=== PATIENT | male | born 1965 | race Caucasian/White ===

== ENCOUNTER 2022-08-30 22:50 | Emergency (ER) | payer OTHER, SELFPAY ==
--- NOTE | ~2022-08-30 | US_ITS ---
Testicular ultrasound with doppler. Indication: Right testicular pain. Technique: Real-time sonography the scrotum was performed. Color flow Doppler and Doppler spectral an alysis were performed. Findings: The testes are homogeneous in echotexture bilaterally. There is no evidence of an intrates ticular mass. The right testis measures 4.2 x 2.4 x 2.9 cm and the left 4.2 x 2.3 x 3.1 cm. There is color-flow seen to both testes. Arterial and venous spectral waveforms are seen in both testes. There is no sonographic evidence of torsion. The head of the epididymis is visualized bilaterally and is within normal limits. Minimal bilateral hydroceles noted. Impression: No testicular mass or testicular torsion. Minimal bilateral hydroceles. Reviewed, dictated and finalized at [facility]. CELL BATTERY TECHNICIAN Impression: No testicular mass or testicular torsion. Minimal bilateral hydroceles.
--- NOTE | ~2022-08-30 | CT_ITS ---
CT Abdomen and Pelvis with contrast. History: Abdominal pain. Spiral CT of the abdomen and pelvis was performed after the administration of intravenous contrast. 1 00 cc of Omnipaque 350 was administered intravenously without complication. Dose reduction technique was used on this scan by utilizing automated exposure control and iterative reconstruction technique. The dose-length product (DLP) was 886.76 mGy-cm. Findings: Scans through the lung bases demonstrate mild atelectatic change. The liver, spleen, pancreas, gallbladder, and adrenal glands are within normal limits. There is a 7 x 5 mm stone at the right UVJ (Hounsfield units 1600), with minimal fullness of the right ureter. No f rank hydronephrosis evident in the kidney however. Additional small bilateral nonobstructing renal st ones are present. Small bilateral renal cysts are present. No left ureteral stone or left hydronephro sis. No evidence of aortic aneurysm. No lymphadenopathy is seen. There is no evidence of bowel obstruction. There is no evidence to suggest acute appendicitis or dive rticulitis. Images through the pelvis were performed. Urinary bladder otherwise unremarkable. Prostate gland and seminal vesicles are unremarkable. No ascites is seen. Impression: 7 x 5 mm stone at the right UVJ, as detailed above, with minimal fullness of the right ureter. Additional small bilateral nonobstructing renal stones. Reviewed, dictated and finalized at location . OR TECHNICAL WRITER Impression: 7 x 5 mm stone at the right UVJ, as detailed above, with minimal fullness of th e right ureter. Additional small bilateral nonobstructing renal stones.
[2022-08-30 22:53] VITALS: BP 157/85; PULSE 87; RESP 16; TEMP 36.4; O2SAT 97
[2022-08-30 23:14] LABS: Basophils Absolute Auto 0.1 K/mm3 (0.0-0.1); Basophils Percent Auto 0.5 % (0.2-1.2); Eosinophils Absolute Auto 0.1 K/mm3 (0-0.3); Eosinophils Percent Auto 1.2 % (0-4.4); Hematocrit 46.2 % (42.0-52.0); Hemoglobin 15.2 g/dL (14.0-18.0); Immature Granulocyte Absolute 0.06 K/mm3 (0.00-0.031); Immature Granulocyte Percent A 0.5 % (0-0.5); Lymphocytes Absolute Auto 1.61 K/mm3 (0.9-3.2); Lymphocytes Percent Auto 14.7 % (18.3-44.2); Mean Corpuscular HGB Conc 32.9 g/dl (32-36); Mean Corpuscular Volume 91.1 fl (80-100); Mean Platelet Volume 9.5 fl (7.4-10.4); Monocytes Percent Auto 9.3 % (2.6-8.5); Neutrophils Absolute Auto 8.1 K/mm3 (1.3-6.7); Neutrophils Percent Auto 73.8 % (45.5-73.1); Platelet Count Result 274 k/mm3 (150-375); Red Blood Count 5.07 M/mm3 (4.6-6.20); Red Cell Distribution Width 12.9 % (11.5-14.5)
[2022-08-30 23:32] VITALS: BP 160/96; PULSE 87; RESP 18; O2SAT 96
[2022-08-30 23:45] VITALS: BP 160/100; O2SAT 95
--- NOTE | 2022-08-30 23:56 | ED.ABDPAIN ---
HPI - Abdominal Pain General Chief Complaint: Abdominal Pain Stated Complaint: RLQ ABD pain to testicle Time Seen by Provider: 08/30/22 23:37 History of Present Illness HPI narrative: Patient is a 57-year-old male here for evaluation of right-sided testicular pain over the past several hours. Patient states the pain is sharp and stabbing in nature, coming on at random, lasting for minutes at a time before resolving without intervention. The pain radiates into his right lower quadrant in his abdomen. He also notes several episodes of nausea and vomiting. No fever, chills, diarrhea or constipation. No penile discharge, dysuria, urgency or frequency. Review of Systems Review of Systems: Gen.: Denies fevers or chills Eyes: Denies eye pain or visual change ENT: Denies congestion Respiratory: Denies shortness of breath or cough CV: Denies chest pain or palpitations GI: Denies abdominal pain nausea, emesis or diarrhea reports right testicular pain. Denies burning, urgency, frequency or hematuria Musculoskeletal: Denies back pain or muscle pain Neuro: Denies numbness, tingling, weakness or focal weakness Skin: Denies rash Except as documented, all other systems reviewed and negative Exam Narrative: APPEARANCE: Well appearing, no pain in distress, well-nourished. Head: Normocephalic and atraumatic. EYES: PERRLA/EOMI, conjunctivae clear NOSE: No nasal drainage EARS: External ear normal in appearance THROAT: Oropharynx is clear. Mucous membranes are moist. NECK: Supple. No adenopathy, no masses. RESPIRATORY: Airway patent, respirations nonlabored. Clear to auscultation bilaterally, no rales, rhonchi, wheezing. CARDIOVASCULAR: Regular rate and rhythm without murmurs, rubs, or gallops. ABDOMINAL: No abdominal tenderness on exam. Normoactive bowel sounds. Soft, nontender, nondistended. No rebound tenderness or guarding. : External genitalia normal in appearance. There is no tenderness to palpation of either testicle. MUSCULOSKELETAL: Extremities are warm and well-perfused. Moves all extremities well. No edema. NEURO: Normal speech. No focal neurologic deficits. SKIN: Skin is warm and dry. No rashes. PSYCHIATRIC: Normal affect/mood.. Course Vital Signs Vital signs: Vital Signs Temperature 97.6 F 08/30/22 22:53 Pulse Rate 87 08/30/22 22:53 Respiratory Rate 16 08/30/22 22:53 Blood Pressure 157/85 H 08/30/22 22:53 Pulse Oximetry 97 08/30/22 22:53 Oxygen Delivery Room Air 08/30/22 22:53 Temperature 97.6 F 08/30/22 22:53 Pulse Rate 87 08/30/22 23:32 Respiratory Rate 18 08/30/22 23:32 Blood Pressure 134/90 08/31/22 00:15 Pulse Oximetry 94 08/31/22 00:15 Oxygen Delivery Room Air 08/30/22 22:53 MDM - Abdominal Pain MDM Narrative Medical decision making narrative: 57-year-old male here for evaluation of right-sided testicular pain that radiates into his right lower quadrant for the past several hours associated with some nausea and vomiting. He is nontoxic in appearance and has normal vital signs. His testicle is normal in appearance and is nontender to palpation along with his abdomen. Testicular ultrasound with no acute findings. CT abdomen pelvis shows a 8 mm obstructing kidney stone at the right UVJ which likely explains his symptoms. Patient feeling markedly improved after pain medicine and Zofran, able to tolerate p.o. and states he is pain-free. He does have a white count of 11 and his BUN is slightly elevated at 30, do not have a baseline to compare to. Creatinine is normal. UA without evidence of infection. Will send patient home with pain meds, urine strainer, Flomax, and urology follow-up. He understands he may return to ED if his pain is too severe or if he develops a fever. Lab Data 08/30/22 23:00 08/30/22 23:00 Labs: Lab Results 08/30/22 08/30/22 08/31/22 Range/Units 23:00 23:00 03:12 WBC 11.0 H (4.5-10.0) K/mm3 RBC 5.07 (4.6-6.20
[2022-08-30] MEDS: ONDANSETRON INJ 4 MG/2 ML VIAL IV PUSH (23:57)
[2022-08-30] MEDS: MORPHINE SULFATE (*CRX) 4 MG/ML INJ IV PUSH (23:57)
[2022-08-31 00:01] VITALS: BP 138/90; O2SAT 93
[2022-08-31 00:15] VITALS: BP 134/90; O2SAT 94
[2022-08-31 00:51] LABS: Alanine Aminotransferase 27 U/L (6-50); Albumin Level 4.7 g/dL (3.5-5.1); Alkaline Phosphatase 76 U/L (38-126); Anion Gap 8 mmol/L (8-16); Aspartate Amino Transferase 30 U/L (17-59); Bilirubin,Total 0.6 mg/dL (0.2-1.3); Blood Urea Nitrogen 30 mg/dL (9-20); Calcium 8.5 mg/dL (8.4-10.2); Carbon Dioxide 24 mmol/L (22-30); Chloride 105 mmol/L (98-107); Estimated CRCL calculation 79 ml/min; Estimated Glomerular Filt Rate > 60; Glucose 147 mg/dL (65-110); Sodium 137 mmol/L (137-145)
[2022-08-31 01:24] LABS: Lipase 97 U/L (23-300)
[2022-08-31] MEDS: SODIUM CHLORIDE 0.9% IV 1,000 ML 999 ML IV CONT (02:27)
[2022-08-31 03:32] LABS: Appearance Urine Clear (Clear); Bilirubin Urine Negative (Negative); Blood Urine Trace-intact (Negative); Color Urine Yellow (Yellow); Glucose Urine UA Negative (Negative); Ketones Urine Negative (Negative); Leukocyte Esterase Ur Negative LEU/UL (Negative); Nitrate Urine Negative (Negative); Protein Urine Negative (Negative); Urobilinogen Urine 0.2 mg/dL (<2.0)
[2022-08-31 03:33] LABS: Mucus Urine Rare /lpf; Squamous Epithelial Cell Urine Rare /hpf (Few); WBC Urine 0-3 /hpf
[2022-08-31 03:40] LABS: Add Urine Microscopic? YES
== END 2022-08-31 03:45 | disposition home or self-care (01) ==
PROVIDERS: Preventive Medicine Aerospace Medicine; Emergency Provider Physician Assistant; PCP Internal Medicine
DX: N20.1 Calculus of ureter (principal)
CPT/HCPCS: 36415; 74177; 76870; 80053; 81001; 83690; 85025; 93976; 96361; 96374; 96375; 99284; J2270; J2405; J7030; Q9967

== ENCOUNTER 2022-11-20 19:53 | Emergency (ER) | payer OTHER, SELFPAY ==
[2022-11-20 20:25] VITALS: BP 125/79; PULSE 75; RESP 16; TEMP 36.2; O2SAT 97
[2022-11-20 20:48] LABS: Basophils Percent Auto 0.4 % (0.2-1.2); Eosinophils Absolute Auto 0.1 K/mm3 (0-0.3); Eosinophils Percent Auto 0.8 % (0-4.4); Hematocrit 45.8 % (42.0-52.0); Immature Granulocyte Absolute 0.03 K/mm3 (0.00-0.031); Immature Granulocyte Percent A 0.3 % (0-0.5); Lymphocytes Absolute Auto 1.57 K/mm3 (0.9-3.2); Lymphocytes Percent Auto 17.2 % (18.3-44.2); Mean Corpuscular HGB Conc 32.8 g/dl (32-36); Mean Corpuscular Hemoglobin 29.5 pg (26-34); Mean Platelet Volume 9.5 fl (7.4-10.4); Monocytes Absolute Auto 0.6 K/mm3 (0.1-0.6); Monocytes Percent Auto 6.9 % (2.6-8.5); Neutrophils Absolute Auto 6.8 K/mm3 (1.3-6.7); Neutrophils Percent Auto 74.4 % (45.5-73.1); Platelet Count Result 253 k/mm3 (150-375); Red Blood Count 5.09 M/mm3 (4.6-6.20); Red Cell Distribution Width 12.7 % (11.5-14.5); White Blood Count 9.1 K/mm3 (4.5-10.0)
[2022-11-20 21:00] LABS: Alanine Aminotransferase 24 U/L (6-50); Albumin Level 4.8 g/dL (3.5-5.1); Alkaline Phosphatase 71 U/L (38-126); Anion Gap 8 mmol/L (8-16); Aspartate Amino Transferase 25 U/L (17-59); Bilirubin,Total 0.5 mg/dL (0.2-1.3); Blood Urea Nitrogen 29 mg/dL (9-20); Calcium 8.9 mg/dL (8.4-10.2); Carbon Dioxide 29 mmol/L (22-30); Chloride 102 mmol/L (98-107); Estimated CRCL calculation 96 ml/min; Estimated Glomerular Filt Rate > 60; Glucose 123 mg/dL (65-110); Potassium 4.3 mmol/L (3.4-5.0); Sodium 139 mmol/L (137-145)
--- NOTE | 2022-11-20 21:15 | PC.NURSE ---
Patient approached the intake desk with his and informed advertising copywriter that he doesn't need to be seen anymore. Patient stated, I don't need to see the doctor anymore. I think I have passed it. Advertising Copywriter explained risks and benefits to patient and patient still decided to leave. Patient alert and ambulatory upon leaving the ED.
== END 2022-11-20 21:15 | disposition left against medical advice (07) ==
LOC: ANHED 21:21
PROVIDERS: Emergency Provider Emergency Medicine; PCP Internal Medicine
DX: R10.31 Right lower quadrant pain (principal)
CPT/HCPCS: 36415; 80053; 85025; 99199